=== PATIENT | female | born 1985 | race Caucasian/White ===

== ENCOUNTER 2018-07-19 01:27 | Emergency (ER) | payer OTHER ==
--- NOTE | 2018-07-19 02:58 | ED GI/GU/ABDOMINAL COMPLAINT ---
See Addendum History of Present Illness General Chief Complaint: Uterine Contractions(Pregnacy) Stated Complaint: 08/15 R/LLQ PAIN, 20 WKS Source: patient, family, old records Exam Limitations: no limitations Vital Signs & Intake/Output Vital Signs & Intake/Output Vital Signs Date Time Temp Pulse Resp B/P B/P Pulse O2 O2 Flow FiO2 Mean Ox Delivery Rate 07/19 0857 98.2 69 16 130/79 100 Room Air 07/19 0649 98.1 73 20 128/80 100 Room Air 07/19 0140 103/88 07/19 0132 97.0 88 22 97 Room Air Allergies Coded Allergies: Penicillins (UNKNOWN 07/19/18) Triage Note: TRIAGE: PATIENT TO ER, REPORTING 08/15 SHARP, STABBING PAIN TO R/L LQ X 30 MINUTES, TOOK 2 [employer]ATE W/O RELIEF. PATIENT CURRENTLY 20 WEEKS , . OBGYN IN [place] MD WADE BROWNING. +NAUSEA. HX OF SAME PAIN MONDAY, WENT AWAY ON OWN. HER OB ADVISED HER TO COME TO ER IF HAPPENS AGAIN. CASE DECLINED BY CBC TINA LAURENT, WILL BE SEEN IN ER. Triage Nurses Notes Reviewed? yes LMP (ages 10-50): 20 weeks AOG ? y Is pt currently ? No Onset: Just prior to arrival Duration: minute(s):, better, constant Timing: recent history Quality/Severity: aching, severe Location: epigastric Radiation: back Activities at Onset: eating Prior Abdominal Problems: similar symptoms Sexually Active: Yes Last Time You Were Sexual: less than 2 months ago Sexual Orientation: Heterosexual Use of Protection: No Modifying Factors: Worsens With: eating, palpation. Associated Symptoms: abdominal pain, loss of appetite, nausea/vomiting HPI: 4 days prior to admission patient complained of upper belt-like abdominal pain radiating to her back associated with nausea occurring after eating. Previous prior to admission after eating she again developed the pain. She denies fever chills vomiting diarrhea chest pain cough shortness breath headache dysuria rash bleeding vaginal discharge. (Yanely RÍOS,Timbo) Reconcile Medications Vit No.130/Iron/FA ( Tablet) 27 MG IRON-800 MCG TABLET 1 TAB PO DAILY (Reported) (Miguel Clayton DO) Past History Travel History Traveled to [place] past 21 day No Medical History Any Pertinent Medical History? 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 No (Timbo Ny MD) Review of Systems Review of Systems Constitutional: Reports: no symptoms. EENTM: Reports: no symptoms. Respiratory: Reports: no symptoms. Cardiovascular: Reports: no symptoms. GI: Reports: see HPI, abdominal pain, nausea. Genitourinary: Reports: no symptoms. Musculoskeletal: Reports: no symptoms. Skin: Reports: no symptoms. Neurological/Psychological: Reports: no symptoms. Hematologic/Endocrine: Reports: no symptoms. Immunologic/Allergic: Reports: no symptoms. All Other Systems: Reviewed and Negative (Timbo Ny MD) Physical Exam Physical Exam General Appearance: well developed/nourished, alert, awake, anxious, mild distress, obese Head: atraumatic, normal appearance Eyes: Bilateral: normal appearance, PERRL, EOMI, normal inspection. Ears, Nose, Throat, Mouth: hearing grossly normal, moist mucous membrane Neck: normal inspection, supple, full range of motion, normal alignment Respiratory: normal breath sounds, chest non-tender, no respiratory distress, quiet respiration, lungs clear Cardiovascular: regular rate/rhythm, normal peripheral pulses, norml femoral pulses equa Peripheral Pulses: 4+ carotid (R), 4+ carotid (L) Gastrointestinal: normal bowel sounds, soft, tenderness Back: normal inspection, normal range of motion, no vertebral tenderness Extremities: normal range of motion, no ligament instability Neurologic/Psych: no motor/sensory deficits, awake, alert, oriented x 3, normal gait, abnormal cerebellar tests, 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 No Sepsis Present: No Sepsis Focused Exam Completed? No (Timbo Ny MD) Progress Differential Diagnosis: biliary colic, cholecystitis, gastritis Plan of Care: Orders Procedure Date/time Status Add-on Test (ER Only) 07/19 1037 Active CULTURE,URINE 07/19 0558 Active URINALYSIS 07/19 0522 Complete LIPASE 07/19 0257 Complete COMPREHENSIVE METABOLIC PANEL 09/13 0257 Complete CBC WITHOUT DIFFERENTIAL 07/19 257 Complete Laboratory Tests 07/19/18 0558: Urinalysis LIGHT H, Urine Color YEL, Urine Clarity HAZY H, Urine pH 6.5, Ur Specific [place] 1.015, Urine Protein NEG, Urine Ketones NEG, Urine Nitrite NEG, Urine Bilirubin NEG, Urine Urobilinogen 0.2, Ur Leukocyte Esterase SMALL H, Ur Microscopic SEDIMENT EXAMINED, Urine WBC 3-5 H, Ur Epithelial Cells MOD H, Urine Bacteria FEW H, Urine Hemoglobin NEG, Urine Glucose NEG 07/19/18 0320: Anion Gap 9, Estimated GFR > 60, BUN/Creatinine Ratio 26.0 H, Glucose 84, Calcium 9.3, Total Bilirubin 0.2, AST 30, ALT 67 H, Alkaline Phosphatase 61, Total Protein 6.5, Albumin 3.7, Globulin 2.8, Albumin/Globulin Ratio 1.3, Lipase 77, CBC w Diff NO MAN DIFF REQ, RBC 3.90 L, MCV 84.8, MCH 28.4, MCHC 33.5, RDW 15.7 H, MPV 7.8, Gran % 82.9 H, Lymphocytes % 11.0 L, Monocytes % 5.0, Eosinophils % 0.9, Basophils % 0.2, Absolute Granulocytes 6.7 H, Absolute Lymphocytes 0.9 L, Absolute Monocytes 0.4, Absolute Eosinophils 0.1, Absolute Basophils 0 Microbiology 07/19 558 URINE ROUT: Urine Culture - RECD Initial ED EKG: none Hand-Off Endorsed To: Miguel Clayton DO Endorsed Time: 0700 Pending: ultrasound (Timbo Ny MD) Departure Departure Disposition: STILL A PATIENT Condition: Stable Clinical Impression Primary Impression: Biliary colic Secondary Impressions: Referrals: Unknown (PCP/Family) Departure Forms: Customer Survey General Discharge Information (Timbo Ny MD) Departure Comments 07/19/18 11:23 am Labs unremarkable other than mild pyuria. Ultrasound negative for definite evidence of cholecystitis. The patient is afebrile and has 0 out of 10 pain no abdominal tenderness she will follow-up with Dr. Roland this week return to the emergency department if worse. Keflex for the urine. (Miguel Clayton DO)
[2018-07-19 03:30] LABS: ABSOLUTE BASOPHIL COUNT 0 /CUMM (0.0-0.2); ABSOLUTE EOSINOPHIL COUNT 0.1 /CUMM (0.0-0.7); ABSOLUTE GRANULOCYTE CT 6.7 /CUMM (1.4-6.5); ABSOLUTE LYMPH COUNT 0.9 /CUMM (1.2-3.4); ABSOLUTE MONOCYTE COUNT 0.4 /CUMM (0.10-0.60); BASOPHIL % 0.2 % (0.0-2.0); EOSINOPHIL % 0.9 % (0-5); GRANULOCYTE % 82.9 % (42.2-75.2); HEMATOCRIT 33.1 % (37-47); MEAN CORPUSCULAR HGB 28.4 PG (27.0-31.0); MEAN CORPUSCULAR HGB CONC 33.5 G/DL (33.0-37.0); MEAN CORPUSCULAR VOLUME 84.8 FL (81.0-99.0); MEAN PLATELET VOLUME 7.8 FL (7.4-10.4); PLATELET COUNT 207 /CUMM (130-400); RBC DISTRIBUTION WIDTH 15.7 % (11.5-14.5)
[2018-07-19] MEDS ORDERED: PRENATAL TABLE1 EAC2 PO (09:11)
--- NOTE | 2018-07-19 10:14 | ULTRASOUND REPORT ---
EXAMINATION: US ABDOMEN LIMITED CLINICAL INFORMATION: Belt-like abdominal pain radiating to back. Presumptive diagnosis of biliary colic. COMPARISON: None TECHNIQUE: Real-time imaging of the right upper quadrant abdominal viscera. FINDINGS: PANCREAS: The pancreatic body and portions of the head and tail are visualized and are unremarkable. Remainder of pancreas is obscured by overlying bowel gas. LIVER: Normal. The liver demonstrates normal size, contour and echogenicity. No focal lesion or intrahepatic biliary duct dilatation. GALLBLADDER: The gallbladder is physiologically distended. Several mobile and calcified shadowing gallstones are seen in the gallbladder with mild gallbladder wall thickening to 0.3 cm. No sonographic Patel sign or pericholecystic fluid. COMMON BILE DUCT: Normal in caliber measuring 0.5 cm in diameter. RIGHT KIDNEY: Normal. No hydronephrosis. No renal calculi or focal parenchymal lesions. The kidney measures 13.2 cm in maximum dimension. FREE FLUID: None. IMPRESSION: 1. Cholelithiasis with borderline gallbladder wall thickening. Depending on clinical circumstances, findings may reflect acute versus chronic low-grade cholecystitis. Close clinical correlation is requested. 2. Incomplete view of the pancreatic head and tail. Visualized portions of pancreas unremarkable. 3. Otherwise normal right upper quadrant ultrasound.
--- NOTE | 2018-07-19 10:25 | ULTRASOUND REPORT ---
EXAMINATION: ULTRASOUND OF THE PELVIS/FIRST TRIMESTER ULTRASOUND CLINICAL INFORMATION: , evacuated from [place]. 20 week age of gestation. Abdominal pain. COMPARISON: None TECHNIQUE: Transabdominal pelvic ultrasound. FINDINGS: Based on the patient's last menstrual period of 03/03/2018, 819 week 5 day gestation is expected with estimated date of delivery of 12/08/2018. A single live intrauterine gestation is identified in breech presentation with a positive heartbeat of 139 bpm. The placenta is posterior in location with the placental edge being away from the cervix. No evidence of subchorionic hemorrhage. No free fluid in the pelvis. The ovaries are not identified. Amount of amniotic fluid present is normal with an JOSE of 12.8 cm. movements are identified. The following dating parameters are obtained: BPD 4.4 cm equals 19 weeks 3 days. HC 17.1 cm equals 19 weeks 5 days. AC 14.3 cm equals 19 weeks 5 days. FL 3.1 cm equals 19 weeks 5 days. HC/AC 1.19. The estimated weight is 304 g +/- 40 4 g (11 ounces +/- 2 ounces). A anatomic survey was not performed as part of this exam. IMPRESSION: 1. Single live intrauterine gestation with positive heartbeat of 139 bpm and average gestational age of 19 weeks and 5 days and estimated date of delivery of 12/08/2018. These dates match clinical dates. 2. Amniotic fluid volume is normal and the placenta is unremarkable in appearance.
[2018-07-19] MEDS ORDERED: KEFLEX500 M1 PO (11:31)
[2018-07-19 11:39] VITALS: BP 126/84
== END 2018-07-19 11:39 ==
LOC: ERH 01:27
PROVIDERS: Emergency Medicine
DX: O26.612 Liver and biliary tract disorders in pregnancy, second trimester (principal); Z3A.20 20 weeks gestation of pregnancy; R11.2 Nausea with vomiting, unspecified; R10.13 Epigastric pain
CPT/HCPCS: 81001; 87086; 96374; 96375; J0131; J2405